=== PATIENT | male | born 2000 | race Caucasian/White ===

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

== ENCOUNTER 2020-04-15 15:30 | Emergency (ER) | payer BC, OTHER ==
[2020-04-15 15:39] VITALS: BP 156/86; PULSE 89; RESP 20; TEMP 98.4
[2020-04-15] MEDS ORDERED: DIPH,PERTUS(ACELL)TETVAC-LF 0.5 ML VIAL IM ONE (15:57)
--- NOTE | 2020-04-15 15:59 | ED ---
General Adult HPI - General Chief complaint: Head Injury Stated complaint: Head Injury [facility] Time Seen by Provider: 04/15/20 15:45 Source: patient, RN notes reviewed Mode of arrival: wheelchair Limitations: no limitations - History of Present Illness Initial comments: 19-year-old male with a past medical history of migraines presents to the emergency room for a chief complaint of laceration. Patient states he was at work walking when he walked into the edge of a metal stair. It caused a small cut to his scalp. Patient did not have a loss of consciousness. He does not have a headache. No nausea vomiting. No confusion. States his boss wanted him to be evaluated for laceration. Patient is not up-to-date on tetanus.Patient has no other complaints at this time including shortness of breath, chest pain, abdominal pain, nausea or vomiting, headache, or visual changes. - Related Data Home Medications Medication Instructions Recorded Confirmed EPINEPHrine (Auto Inject) [Epipen] 0.3 mg IM ONCE PRN 02/01/18 02/01/18 Previous Rx's Medication Instructions Recorded EPINEPHrine [Epipen 2-Alberto] 0.3 mg IJ ONCE PRN #1 auto.injct 02/01/18 predniSONE 50 mg PO DAILY #5 tab 02/01/18 Allergies Allergy/AdvReac Type Severity Reaction Status Date / Time No Known Allergies Allergy Verified 04/15/20 15:39 Review of Systems ROS Statement: Those systems with pertinent positive or pertinent negative responses have been documented in the HPI. ROS Other: All systems not noted in ROS Statement are negative. Past Medical History Additional Past Medical History / Comment(s): migraines History of Any Multi-Drug Resistant Organisms: None Reported Past Surgical History: No Surgical Hx Reported Past Psychological History: No Psychological Hx Reported Smoking Status: Never smoker Past Alcohol Use History: None Reported Past Drug Use History: None Reported General Exam Limitations: no limitations General appearance: alert, in no apparent distress Head exam: Absent: atraumatic (patient has a small 0.5 cm superficiallaceration to the vertex of the scalp. This is non-gaping. Well approximated.) Eye exam: Present: normal appearance, PERRL, EOMI. Absent: scleral icterus, conjunctival injection, periorbital swelling ENT exam: Present: normal exam, mucous membranes moist Neck exam: Present: normal inspection, full ROM. Absent: tenderness, meningismus Respiratory exam: Present: normal lung sounds bilaterally. Absent: respiratory distress, wheezes, rales, rhonchi, stridor Cardiovascular Exam: Present: regular rate, normal rhythm, normal heart sounds. Absent: systolic murmur, diastolic murmur, rubs, gallop, clicks Neurological exam: Present: alert, oriented X3, CN II-XII intact, normal gait, other (GCS 15) Course Vital Signs 04/15/20 15:35 Temperature 98.4 F Pulse Rate 89 Respiratory 20 Rate Blood Pressure 156/86 O2 Sat by Pulse 96 Oximetry Medical Decision Making - Medical Decision Making small 0.5 cm superficial laceration noted to the vertex of the scalp. This was cleaned with saline pressure irrigation. This is non-gaping. It is superficial, not requiring gavin. tetanus vax was updated. Patient did not have any signs of concussion or severe headache injury. No loss of consciousness, headache, vomiting, confusion. I discussed the symptoms and returning to ER if these occur or if he has any other worsening symptoms. Discussed follow-up with primary care in 1-2 days. Disposition Clinical Impression: Laceration Disposition: HOME SELF-CARE Condition: Good Instructions (If sedation given, give patient instructions): Laceration (ED) Additional Instructions: monitor for drainage or sinus infection. If you have any symptoms of head injury such as headache, vomiting, confusion return to the emergency room. Otherwise follow-up with primary care in the next 1-2 days for a recheck. Is patient prescribed a controlled substance at d/c from ED?: No Referrals: Sarbjit Chamorro MD [Primary Care Provider] - 1-2 days Time of Disposition: 15:59
== END 2020-04-15 16:15 | disposition home or self-care (01) ==
LOC: EC 15:30
DX: S01.01XA Laceration without foreign body of scalp, initial encounter (principal); Z23 Encounter for immunization; W26.8XXA Contact with other sharp object(s), not elsewhere classified, initial encounter; Y93.01 Activity, walking, marching and hiking; Y92.69 Other specified industrial and construction area as the place of occurrence of the external cause; Y99.0 Civilian activity done for income or pay
CPT/HCPCS: 90471; 90715; 99282

== ENCOUNTER → 2023-03-23 | Outpatient (CLI) | payer BC ==
--- NOTE | 2023-03-23 15:05 | US ---
EXAMINATION TYPE: US scrotum with doppler. TECHNIQUE: Grayscale and color Doppler Duplex imaging performed of the scrotum. DATE OF EXAM: 03/23/2023 COMPARISON: NONE CLINICAL INDICATION: Male, 22 years old with history of N50.811 RT TESTICULAR PAIN; intermittent righ t testicular pain, no palpable concerns EXAM MEASUREMENTS: TESTICLES: Right Testicle: 4.8 x 2.5 x 2.9 cm Left Testicle: 5.0 x 3.0 x 3.0 cm Slight heterogeneity on both sides may be technical. A few punctate echogenic calcifications on the l eft are of questionable clinical significance. Doppler performed to assess for testicular vascularity; good bilateral color flow and waveforms are s een. There is no evidence of testicular torsion. EPIDIDYMIS HEAD: Right Epididymis: 1.5 x 1.1 cm with a a 0.6cm epidyd head cyst Left Epididymis: 1.3 x 1.0 cm Presence of hydroceles: Small hydrocele on the left with some floating debris. Presence of varicoceles: no IMPRESSION: 1. No sonographic evidence for testicular torsion or testicular mass. 2. Slight parenchymal heterogeneity on both sides likely technical. 3. Small left-sided hydrocele with some floating debris. A benign 6 mm epididymal head cyst on the ri ght.
== END | disposition home or self-care (01) ==
LOC: RADUSWWP 13:40
PROVIDERS: ATTEND Family Medicine
DX: N50.3 Cyst of epididymis (principal); N43.3 Hydrocele, unspecified; N50.811 Right testicular pain
CPT/HCPCS: 76870; 93975